=== PATIENT | female | born 1965 | race Caucasian/White ===

== ENCOUNTER 2021-12-31 15:24 | Emergency (ER) | payer SELFPAY ==
[2021-12-31 15:26] VITALS: BP 197/88; PULSE 87; RESP 20; TEMP 36.9; O2SAT 98
--- NOTE | 2021-12-31 15:45 | DI.RAD.S_ITS ---
PROCEDURE: XR CHEST 1V INDICATIONS: Chest pain TECHNIQUE: One view of the chest was acquired. COMPARISON: None. FINDINGS: Surgical changes and devices: None. Lungs and pleura: Lungs are clear. No pleural effusions or pneumothorax. Mediastinum: Mediastinal contours appear normal. Heart size is normal. Bones and chest wall: No suspicious bony lesions. Overlying soft tissues appear unremarkable. IMPRESSION: No acute cardiopulmonary process demonstrated radiographically. Dictated by: Pal Anna M.D. on 12/31/2021 at 16:08 Approved by: Pal Anna M.D. on 12/31/2021 at 16:10
[2021-12-31 16:21] LABS: Add Manual Diff / Slide Review NO; Basophils Absolute Auto 100 /uL (0-100); Basophils Percent Auto 0.7 % (0-2); Eosinophils Absolute Auto 100 /uL (0-450); Eosinophils Percent Auto 1.6 % (2-4); Hematocrit 37.1 % (36-46); Hemoglobin 12.5 g/dL (12.0-16.0); Lymphocytes Absolute Auto 3000 /uL (1100-4500); Lymphocytes Percent Auto 36.7 % (25-40); Mean Corpuscular HGB Conc 33.7 % (30-36); Mean Corpuscular Hemoglobin 28.5 PG (26-34); Mean Corpuscular Volume 84.8 fL (80-100); Monocytes Absolute Auto 400 /uL (0-900); Monocytes Percent Auto 4.7 % (3-14); Neutrophils Absolute Auto 4600 /uL (1500-7000); Neutrophils Percent Auto 56.3 % (50-75); Platelet Count 204 X10^3/uL (150-400); Red Blood Cell Count 4.37 X10^6/uL (4.0-5.2); Red Cell Distribution Width 14.9 % (11.6-14.8); White Blood Cell Count 8.3 X10^3/uL (4.5-11.0)
[2021-12-31 16:26] LABS: Alanine Aminotransferase 16 IU/L (<35); Albumin 4.3 g/dL (3.5-5.0); Albumin Globulin Ratio 1.4 (1.0-2.8); Alkaline Phosphatase 77 U/L (38-126); Aspartate Aminotransferase 22 IU/L (14-36); BUN Creatinine Ratio 16.8 (6-22); Bilirubin Total 0.4 mg/dL (0.2-1.3); Blood Urea Nitrogen 16 mg/dL (7-17); Calcium 8.6 mg/dL (8.4-10.2); Carbon Dioxide 25 mmol/L (22-32); Chloride 104 mmol/L (98-107); Creatine Kinase 52 U/L (30-135); Estimated Glomerular Filt Rate > 60 mL/min (>60); Globulin 3.1 g/dL (1.7-4.1); Glucose 128 mg/dL (70-100); HEMOLYSIS < 15 (0-50); Lipase 45 U/L (23-300); Magnesium 1.8 mg/dL (1.6-2.3); Sodium 139 mmol/L (137-145); Total Protein 7.4 g/dL (6.3-8.2)
[2021-12-31 16:37] LABS: Troponin I < 0.012 ng/mL (0.01-0.034)
--- NOTE | 2021-12-31 16:43 | ED_ITS ---
HPI - General Adult <Fernando Johnson PA-C - Last Filed: 12/31/21 18:20> General Chief complaint: Hypertension Stated complaint: HIGH BLOOD PRESSURE Time Seen by Provider: 12/31/21 16:34 Source: patient and family Mode of arrival: Wheelchair History of Present Illness HPI narrative: Patient is a 56-year-old female who presents to the ED reporting a 1 day history of elevated blood pressure. She has been having some abdominal discomfort and increased gas and bloating with some associated diarrhea for the past couple of days. She states that the abdominal pain seems to be an ongoing thing although it is new for her she does not have a history of any chronic changes of bowel problems. No inflammatory bowel disease or irritable bowel irritable bowel disease. She reports excessive amount of gas and belching that does offer her some relief of her symptoms. She noticed after the abdominal pain started that her blood pressure started to elevate that she has not been able to control her blood pressure as a since then with her metoprolol. She has been on metoprolol for 15 years which she takes 25 mg twice a day. No reported black tarry stools or any nausea or vomiting. Related Data Previous Rx's Medication Instructions Recorded omeprazole 40 mg capsule,delayed 40 mg PO QDAY #180 caps 04/09/16 release metoprolol tartrate 25 mg tablet 25 mg PO BID #180 tabs 08/24/18 gabapentin 300 mg capsule 600 mg PO TID #180 caps 09/02/18 hydrocodone 5 mg-acetaminophen 325 1 - 2 tab PO Q6HP PRN pain #120 09/02/18 mg tablet (Wilmot) tabs sertraline 50 mg tablet (Zoloft) 50 mg PO DAILY #30 tabs 09/02/18 Allergies Allergy/AdvReac Type Severity Reaction Status Date / Time latex [LATEX] Allergy Mild RASH Verified 09/02/18 14:00 Penicillins [PENICILLINS] Allergy Mild Verified 09/02/18 14:00 CLASS: X20 - Allergy Mild Uncoded 09/02/18 14:00 Review of Systems <Fernando Johnson PA-C - Last Filed: 12/31/21 18:20> Review of Systems ROS Unobtainable: All systems reviewed & are unremarkable except as noted in HPI and below Constitutional Constitutional: Denies chills, Denies fatigue, Denies fever(s), Denies frequent falls, Denies lethargy and Denies weakness Eyes Eyes: Denies change in vision, Denies eye discharge, Denies irritation and Denies loss of vision ENT Ears, Nose, Mouth, and Throat: Denies change in voice, Denies dizziness, Denies neck pain, Denies sore throat and Denies throat swelling Cardiovascular Cardiovascular: Denies chest pain, Reports chest pain with activity, Denies irre gular heart rhythm, Denies lightheadedness, Reports palpitations, Denies dyspnea, Denies dyspnea on exertion and Denies orthopnea Respiratory Respiratory: Denies cough, Denies dyspnea, Denies dyspnea on exertion and Denies wheezing Gastrointestinal Gastrointestinal: Reports abdominal pain, Reports change in bowel habits, Reports diarrhea, Denies nausea and Denies vomiting Genitourinary Genitourinary: Denies hematuria, Denies flank pain, Denies urinary incontinence and Denies urinary urgency Musculoskeletal Musculoskeletal: Denies back pain, Denies muscle weakness, Denies neck pain, Denies numbness and Denies tingling Integumentary/Breasts Skin/Breast: Denies pruritus, Denies erythema, Denies rash and Denies wounds Neurologic Neurologic: Denies behavioral changes, Denies confusion, Denies dizziness, Denies frequent falls, Denies loss of vision, Denies numbness, Denies tingling and Denies weakness Psychiatric Psychiatric: Denies anxiety, Denies behavioral changes, Denies confusion, Denies depression, Denies homicidal ideation and Denies suicidal ideation Endocrine Endocrine: Denies fatigue, Denies flushing and Reports palpitations Hematologic/Lymphatic Hematologic/Lymphatic: Denies easy bruising Allergic/Immunologic Allergic/Immunologic: Denies urticaria, Denies throat swelling and Denies wh eezing Patient History <Fernando Johnson PA-C - Last Filed: 12/31/21 18:20> Medical History (Updated 12/31/21 @ 18:20 by Fernando Johnson PA-C) Anxiety GERD (gastroesophageal reflux disease) Lumbar disc disease Family History Grandmother Cancer Social History marital status: Smoking Status: Current every day smoker alcohol intake: current (1-2 A DAY ) substance use type: does not use Smoking Status: Current every day smoker Exam <Fernando Johnson PA-C - Last Filed: 12/31/21 18:20> Initial Vital Signs Initial Vital Signs: Vital Signs Temperature 98.4 F 12/31/21 15:26 Pulse Rate 87 12/31/21 15:26 Respiratory Rate 20 12/31/21 15:26 Blood Pressure 197/88 H 12/31/21 15:26 Pulse Oximetry 98 12/31/21 15:26 Oxygen Delivery Method 12/31/21 15:26 Const General: cooperative, healthy appearing and comfortable Nutritional Appearance: average body habitus HENMT Head: normal to inspection and normocephalic Resp Effort & Inspection: normal respiratory effort and able to speak in complete sentences Auscultation: clear to auscultation bilaterally Cardio Palpation: normal PMI Rate: regular rate Rhythm: regular rhythm Heart Sounds: S1 normal and S2 normal GI Inspection: normal to inspection Palpation: soft and no hepatosplenomegaly Percussion: normal to percussion Auscultation: normal bowel sounds <Mora Paez MD - Last Filed: 12/31/21 18:25> Initial Vital Signs Initial Vital Signs: Vital Signs Temperature 98.4 F 12/31/21 15:26 Pulse Rate 87 12/31/21 15:26 Respiratory Rate 20 12/31/21 15:26 Blood Pressure 197/88 H 12/31/21 15:26 Pulse Oximetry 98 12/31/21 15:26 Oxygen Delivery Method 12/31/21 15:26 Course <Fernando Johnson PA-C - Last Filed: 12/31/21 18:20> Orders Ordered: ED Orders 12/31/21 15:45 XR chest 1V Stat COVID19 -Nasal RAPID/Pre-Proc Stat EKG-12 Lead Stat 12/31/21 15:48 Complete Blood Count AUTO DIFF Stat Comprehensive Metabolic Panel Stat Lipase Stat Magnesium Stat Troponin & CK Cardiac Panel Stat 12/31/21 16:43 CT abdomen pelvis wo con Stat Reevaluation(s) Reevaluation #1: Patient doing okay no complaints of abdominal discomfort or gas or bloating. Vital Signs Vital signs: Vital Signs - 8 hr 12/31/21 15:26 12/31/21 18:16 Temperature 98.4 F Pulse Rate 87 67 Respiratory Rate 20 16 Blood Pressure 197/88 H 156/73 H Pulse Oximetry 98 95 Oxygen Delivery Method Room Air Room Air <Mora Paez MD - Last Filed: 12/31/21 18:25> Orders Ordered: ED Orders 12/31/21 15:45 XR chest 1V Stat COVID19 -Nasal RAPID/Pre-Proc Stat EKG-12 Lead Stat 12/31/21 15:48 Complete Blood Count AUTO DIFF Stat Comprehensive Metabolic Panel Stat Lipase Stat Magnesium Stat Troponin & CK Cardiac Panel Stat 12/31/21 16:43 CT abdomen pelvis wo con Stat Vital Signs Vital signs: Vital Signs - 8 hr 12/31/21 15:26 12/31/21 18:16 Temperature 98.4 F Pulse Rate 87 67 Respiratory Rate 20 16 Blood Pressure 197/88 H 156/73 H Pulse Oximetry 98 95 Oxygen Delivery Method Room Air Room Air Medical Decision Making <Fernando Johnson PA-C - Last Filed: 12/31/21 18:20> Differential Diagnosis Differential Diagnosis: Hypertensive Lab Data Result diagrams: 12/31/21 15:48 12/31/21 15:48 Labs: Lab Results 12/31/21 12/31/21 Range/Units 15:48 15:48 WBC 8.3 (4.5-11.0) X10^3/uL RBC 4.37 (4.0-5.2) X10^6/uL Hgb 12.5 (12.0-16.0) g/dL Hct 37.1 (36-46) % MCV 84.8 (80-100) fL MCH 28.5 (26-34) PG MCHC 33.7 (30-36) % RDW 14.9 H (11.6-14.8) % Plt Count 204 (150-400) X10^3/uL Neut % (Auto) 56.3 (50-75) % Lymph % (Auto) 36.7 (25-40) % Gila % (Auto) 4.7 (3-14) % Eos % (Auto) 1.6 L (2-4) % Baso % (Auto) 0.7 (0-2) % Neut # (Auto) 4600 (7036-0196) /uL Lymph # (Auto) 3000 (5961-4810) /uL Gila # (Auto) 400 (0-900) /uL Eos # (Auto) 100 (0-450) /uL Baso # (Auto) 100 (0-100) /uL Sodium 139 (137-145) mmol/L Potassium 4.0 (3.4-5.1) mmol/L Chloride 104 (98-107) mmol/L Carbon Dioxide 25 (22-32) mmol/L BUN 16 (7-17) mg/dL Creatinine 0.95 (0.52-1.04) mg/dL Estimated GFR > 60 (>60) mL/min BUN/Creatinine Ratio 16.8 (6-22) Glucose 128 H (70-100) mg/dL Calcium 8.6 (8.4-10.2) mg/dL Magnesium 1.8 (1.6-2.3) mg/dL Total Bilirubin 0.4 (0.2-1.3) mg/dL AST 22 (14-36) IU/L ALT 16 (<35) IU/L Alkaline Phosphatase 77 (38-126) U/L Total Creatine Kinase 52 (30-135) U/L CK-MB (CK-2) TNP CK-MB (CK-2) Rel Index TNP Troponin I < 0.012 (0.01-0.034) ng/mL Total Protein 7.4 (6.3-8.2) g/dL Albumin 4.3 (3.5-5.0) g/dL Globulin 3.1 (1.7-4.1) g/dL Albumin/Globulin Ratio 1.4 (1.0-2.8) Lipase 45 (23-300) U/L ECG Data Attestation: I personally reviewed and interpreted this ECG as follows: Prior ECG tracings: not available for review Interpretation: Sinus rhythm no acute changes. [facility] Narrative Medical decision making narrative: Patient was evaluated today for elevated blood pressure. She has been taking her blood pressure at home and as result she increased her metoprolol that she takes 25 mg twice daily she took 50. She recently quit smoking and admits that she started vaping result. CT abdomen does not show any likely cause for her abdominal discomfort and bloating. Vital signs were stable patient will be discharged home follow-up with PCP. <Mora Paez MD - Last Filed: 12/31/21 18:25> Lab Data Labs: Lab Results 12/31/21 12/31/21 Range/Units 15:48 15:48 WBC 8.3 (4.5-11.0) X10^3/uL RBC 4.37 (4.0-5.2) X10^6/uL Hgb 12.5 (12.0-16.0) g/dL Hct 37.1 (36-46) % MCV 84.8 (80-100) fL MCH 28.5 (26-34) PG MCHC 33.7 (30-36) % RDW 14.9 H (11.6-14.8) % Plt Count 204 (150-400) X10^3/uL Neut % (Auto) 56.3 (50-75) % Lymph % (Auto) 36.7 (25-40) % Gila % (Auto) 4.7 (3-14) % Eos % (Auto) 1.6 L (2-4) % Baso % (Auto) 0.7 (0-2) % Neut # (Auto) 4600 (3339-8930) /uL Lymph # (Auto) 3000 (5196-4662) /uL Gila # (Auto) 400 (0-900) /uL Eos # (Auto) 100 (0-450) /uL Baso # (Auto) 100 (0-100) /uL Sodium 139 (137-145) mmol/L Potassium 4.0 (3.4-5.1) mmol/L Chloride 104 (98-107) mmol/L Carbon Dioxide 25 (22-32) mmol/L BUN 16 (7-17) mg/dL Creatinine 0.95 (0.52-1.04) mg/dL Estimated GFR > 60 (>60) mL/min BUN/Creatinine Ratio 16.8 (6-22) Glucose 128 H (70-100) mg/dL Calcium 8.6 (8.4-10.2) mg/dL Magnesium 1.8 (1.6-2.3) mg/dL Total Bilirubin 0.4 (0.2-1.3) mg/dL AST 22 (14-36) IU/L ALT 16 (<35) IU/L Alkaline Phosphatase 77 (38-126) U/L Total Creatine Kinase 52 (30-135) U/L CK-MB (CK-2) TNP CK-MB (CK-2) Rel Index TNP Troponin I < 0.012 (0.01-0.034) ng/mL Total Protein 7.4 (6.3-8.2) g/dL Albumin 4.3 (3.5-5.0) g/dL Globulin 3.1 (1.7-4.1) g/dL Albumin/Globulin Ratio 1.4 (1.0-2.8) Lipase 45 (23-300) U/L Discharge Plan Departure Patient Disposition: Home Clinical Impression: Abdominal pain, Hypertension Instructions: DI for High Blood Pressure, DI for Abdominal Pain-Adult Activity Restrictions/Additional Instructions: You were seen today for your abdominal complaints and your elevated blood pressure. Continue to monitor your blood pressure at home notify your primary care provider of the findings and arrange for follow-up appointment. If her symptoms worsen or you begin to have any other difficulties you can return to the ED for re-evaluation. Thank you for the opportunity via care for you today. Prescriptions: No Action omeprazole 40 MG capsule,delayed release(DR/EC) 40 mg PO QDAY Qty: 180 3RF metoprolol tartrate 25 mg tablet 25 mg PO BID Qty: 180 3RF gabapentin 300 mg capsule 600 mg PO TID Qty: 180 3RF hydrocodone-acetaminophen [Wilmot] 5-325 mg tablet 1 - 2 tab PO Q6HP PRN (Reason: pain) Qty: 120 0RF sertraline [Zoloft] 50 mg tablet 50 mg PO DAILY Qty: 30 3RF <Mora Paez MD - Last Filed: 12/31/21 18:25> Cosign ED Attending Cosfortino[place] Attestation: I was immediately available in the department for consultation throughout this patient's visit. I agree with documentation as above. Mora Paez MD
--- NOTE | 2021-12-31 16:43 | DI.CT.S_ITS ---
PROCEDURE: CT ABDOMEN PELVIS WO CON INDICATIONS: abd pain, gas TECHNIQUE: Axial sections were acquired from the lung bases to the pubic symphysis. Coronal and sagittal reformats were performed. For radiation dose reduction, the following was used: automated exposure control, adjustment of mA and/or kV according to patient size. COMPARISON: [facility], CR, XR CHEST 1V, 12/31/2021, 15:57. FINDINGS: Image quality: Excellent. Lung bases: Unremarkable. Heart: No significant findings. URINARY: Right Kidney: No stones or hydronephrosis. Right Ureter: No hydroureter. Left Kidney: No stones or hydronephrosis. Left Ureter: No hydroureter. Bladder: Normal wall thickness. No stones. ABDOMEN: Liver: Unremarkable. Gallbladder: Unremarkable. Biliary ducts: Unremarkable. Pancreas: Unremarkable. Spleen: Unremarkable. Incidental note is made of an accessory splenule along the hilum of the primary spleen. Adrenal Glands: Unremarkable. Stomach and Bowel: Stomach, small bowel loops, and colon are unremarkable. There is a normal appendix. Colonic diverticulosis is seen, without findings of active diverticulitis. Peritoneum: No abnormal intraperitoneal fluid. No free air. Ventral Wall: No hernia. Abdominal Nodes: No enlarged retroperitoneal or mesenteric lymph nodes. Vessels: Aorta and inferior vena cava are normal in size. PELVIS: Pelvic Organs: The uterus appears normal for age. No adnexal masses are seen. Pelvic Nodes: Unremarkable. Miscellaneous: No inguinal hernias are seen. Bones: Focal lower lumbar spine degenerative changes are seen. Milder degenerative changes are seen elsewhere. IMPRESSION: No imaging explanation is found for this patient's presenting symptoms. No dilated loops of small bowel are seen. Distal colonic diverticulosis is seen, without findings of active diverticulitis. Incidental note is made of: Accessory splenule Normal appendix Lumbar spine degenerative change Dictated by: Ronald Kelly M.D. on 12/31/2021 at 16:46 Approved by: Ronald Kelly M.D. on 12/31/2021 at 16:47
[2021-12-31 18:16] VITALS: BP 156/73; PULSE 67; RESP 16; O2SAT 95
== END 2021-12-31 18:30 | disposition home or self-care (01) ==
PROVIDERS: Emergency Medicine; Emergency Provider Physician Assistant
DX: R10.9 Unspecified abdominal pain (principal); I10 Essential (primary) hypertension; R19.7 Diarrhea, unspecified; R00.2 Palpitations
CPT/HCPCS: 71045; 74176; 80053; 82550; 83690; 83735; 84484; 85025; 93005; 99283; 99284

== ENCOUNTER 2022-01-08 13:42 | Emergency (ER) | payer SELFPAY ==
[2022-01-08 13:49] VITALS: BP 215/99; PULSE 89; RESP 18; TEMP 36.7; O2SAT 97; BMI 37.1
--- NOTE | 2022-01-08 15:20 | ED_ITS ---
HPI - Dental/Oral <JOAO Moffett - Last Filed: 01/08/22 15:39> General Chief complaint: Dental/Oral Stated complaint: HIGH BLOOD PRESSURE TOOTH ACHE LOWER Time Seen by Provider: 01/08/22 15:10 Source: patient Mode of arrival: Ambulatory History of Present Illness HPI Narrative: This is a 56-year-old female presents to the emergency department complaining of dental pain off and on for the last two weeks, states that she has a small blister on her gums, and significant DKA of to adjacent teeth which she needs to help pulled. Patient states that she thinks that they are infected, and causing her high blood pressure. She states that her blood pressure was high today although she is taking her regularly scheduled medications. She denies having a primary care provider, states that she is awaiting insurance to have her teeth pulled. Related Data Previous Rx's Medication Instructions Recorded omeprazole 40 mg capsule,delayed 40 mg PO QDAY #180 caps 04/09/16 release metoprolol tartrate 25 mg tablet 25 mg PO BID #180 tabs 08/24/18 gabapentin 300 mg capsule 600 mg PO TID #180 caps 09/02/18 hydrocodone 5 mg-acetaminophen 325 1 - 2 tab PO Q6HP PRN pain #120 09/02/18 mg tablet ([place]) tabs sertraline 50 mg tablet (Zoloft) 50 mg PO DAILY #30 tabs 09/02/18 chlorhexidine gluconate 0.12 % 15 ml buccal DAILY #118 mL 01/08/22 mouthwash clindamycin HCl 150 mg capsule 150 mg PO TID 7 days #21 caps 01/08/22 clindamycin HCl 300 mg capsule 300 mg PO TID 7 days #21 caps 01/08/22 tramadol 50 mg tablet 50 mg PO BID PRN pain #14 tabs 01/08/22 Allergies Allergy/AdvReac Type Severity Reaction Status Date / Time latex [LATEX] Allergy Mild RASH Verified 09/02/18 14:00 Penicillins [PENICILLINS] Allergy Mild Verified 09/02/18 14:00 CLASS: X20 - Allergy Mild Uncoded 09/02/18 14:00 Review of Systems <JOAO Moffett - Last Filed: 01/08/22 15:39> Review of Systems Narrative: General: denies fever, chills, malaise, sweats, fatigue Head/Neck: denies headache, neck pain, dizziness Mouth: Endorses left lower tooth pain with DKA teeth and poor dentition Eyes: denies visual changes, eye pain Cardio: denies chest pain, palpitations, edema Respiratory: denies dyspnea, cough, orthopnea GI: denies abdominal pain, nausea, vomiting, or diarrhea : denies dysuria, hematuria, urinary retention, frequency or incontinence MSK: denies joint pain, muscle weakness Skin: denies rash, itching, skin lesions or other Neuro: denies numbness, tingling Patient History <JOAO Moffett - Last Filed: 01/08/22 15:39> Medical History Anxiety GERD (gastroesophageal reflux disease) Lumbar disc disease Family History Grandmother Cancer Social History marital status: Smoking Status: Current every day smoker alcohol intake: current (1-2 A DAY ) substance use type: does not use Smoking Status: Current every day smoker tobacco type: vaping Substance Use Type: does not use Exam <JOAO Moffett - Last Filed: 01/08/22 15:39> Narrative Exam Narrative: Independently reviewed vitals signs and nursing notes. General: cooperative, comfortable, in no acute distress, well groomed Head: atraumatic, symmetrical facial expressions Neck: supple Eyes: equal round and reactive, EOMI, conjunctiva normal Nose: nares patent, no rhinorrhea Mouth/Throat: moist mucus membranes, left lower jaw with two decayed molars without any other molars on the lower left side, small pinpoint lump or blister on the gingiva below the tooth, appears to have clear fluid inside. No other source, no surrounding erythema, edema, uvula is midline, no anterior cervical lymphadenopathy, no tenderness underneath her tongue, or the anterior cervical space. Cardiovascular: regular rate and rhythm, no peripheral edema, warm extremities Respiratory: normal effort, able to speak in complete sentences, no audible wheezing, stridor, or rales. No retractions or tachypnea. GI: abdomen soft, nontender to palpation, nondistended, no masses, no exquisite tenderness with exam, without guarding or rebound. MSK: moves all extremities, neurovascularly intact, no weakness, normal tone Skin: brisk capillary refill, no rash, no erythema Neuro: normal speech and cognition, A&O x3 Psych: mental status is grossly normal, congruent mood, normal affect, pleasant and cooperative Initial Vital Signs Initial Vital Signs: Vital Signs Temperature 98.1 F 01/08/22 13:49 Pulse Rate 89 01/08/22 13:49 Respiratory Rate 18 01/08/22 13:49 Blood Pressure 215/99 H 01/08/22 13:49 Pulse Oximetry 97 01/08/22 13:49 Oxygen Delivery Method 01/08/22 13:49 <Kelsea Brandon DO - Last Filed: 01/09/22 07:30> Initial Vital Signs Initial Vital Signs: Vital Signs Temperature 98.1 F 01/08/22 13:49 Pulse Rate 89 01/08/22 13:49 Respiratory Rate 18 01/08/22 13:49 Blood Pressure 215/99 H 01/08/22 13:49 Pulse Oximetry 97 01/08/22 13:49 Oxygen Delivery Method 01/08/22 13:49 Course <JOAO Moffett - Last Filed: 01/08/22 15:39> Orders Ordered: Discontinued Medications Clindamycin HCl (Clindamycin 150 Mg Capsule) 300 mg PO NOW ONE Stop: 01/08/22 15:19 Last Admin: 01/08/22 15:32 Dose: 300 mg Documented By: OMAR Clindamycin HCl (Clindamycin 150 Mg Capsule) 300 mg PO NOW ONE Stop: 01/08/22 15:19 Last Admin: 01/08/22 15:33 Dose: Not Given Documented By: OMAR Clindamycin HCl (Clindamycin 150 Mg Capsule) 150 mg PO NOW ONE Stop: 01/08/22 15:30 Last Admin: 01/08/22 15:32 Dose: 150 mg Documented By: OMAR Tramadol HCl (Tramadol 50 Mg Tablet) 50 mg PO NOW ONE Stop: 01/08/22 15:19 Last Admin: 01/08/22 15:32 Dose: 50 mg Documented By: OMAR Vital Signs Vital signs: Vital Signs - 8 hr 01/08/22 13:49 Temperature 98.1 F Pulse Rate 89 Respiratory Rate 18 Blood Pressure 215/99 H Pulse Oximetry 97 Oxygen Delivery Method Room Air <Kelsea Brandon DO - Last Filed: 01/09/22 07:30> Orders Ordered: Discontinued Medications Clindamycin HCl (Clindamycin 150 Mg Capsule) 300 mg PO NOW ONE Stop: 01/08/22 15:19 Last Admin: 01/08/22 15:32 Dose: 300 mg Documented By: MOAR Clindamycin HCl (Clindamycin 150 Mg Capsule) 300 mg PO NOW ONE Stop: 01/08/22 15:19 Last Admin: 01/08/22 15:33 Dose: Not Given Documented By: OMAR Clindamycin HCl (Clindamycin 150 Mg Capsule) 150 mg PO NOW ONE Stop: 01/08/22 15:30 Last Admin: 01/08/22 15:32 Dose: 150 mg Documented By: OMAR Tramadol HCl (Tramadol 50 Mg Tablet) 50 mg PO NOW ONE Stop: 01/08/22 15:19 Last Admin: 01/08/22 15:32 Dose: 50 mg Documented By: OMAR Vital Signs Vital signs: Vital Signs - 8 hr 01/08/22 13:49 Temperature 98.1 F Pulse Rate 89 Respiratory Rate 18 Blood Pressure 215/99 H Pulse Oximetry 97 Oxygen Delivery Method Room Air MDM - Dental/Oral <JOAO Moffett - Last Filed: 01/08/22 15:39> MDM Narrative Medical decision making narrative: This is a 56-year-old female presents to the emergency department stating that she has lower left dental decay with worsening pain over the last three days, states that she needs to have these teeth pulled because there is no tooth left. She states that there is a small blister in front of the tooth that has been there for approximately one month, and it is constantly hurting. She states that it has gotten worse over the last few days and her blood pressure was elevated this morning. She takes 25 mg of metoprolol b.i.d. and has been on that dose for many years but states that today her blood pressure was elevated much higher than usual. In triage, her BP was elevated at two with a heart rate of 89. She denies any chest pain, headache, mental status changes, bleeding, fevers, or any systemic symptoms which are abnormal. She does not have a primary care provider she is encouraged to establish one and given the phone number for [facility]. On exam it appears that she has significant decay of her lower left teeth, she was given contact information for [facility] dental clinics and encouraged to have this extracted. She states that she is allergic to penicillin with a rash and we discussed this is likely experienced nerve pain but she feels that this is infectious and states that it is getting worse. She denies any recent fever, chills, fatigue or weakness, there is no surrounding edema or erythema, she does have significant decay of her teeth with a small blister-like a said it does not appear to be an abscess and has clear fluid inside. Does not appear to be herpetic and patient reports it has been there for one month so it could be chronic. She was prescribed clindamycin, discussed that this was a strong antibiotic to make diarrhea, it comes with a risk of C difficile as well, discussed this and she wishes to have it anyway. She was given tramadol for pain states she has had this before without any issues. She understands to follow-up at [facility], pick her medications up at [facility] [facility], establish care with a primary care provider about her blood pressure and to return to the emergency department for any new or worsening symptoms. Patient is appropriate and amenable to discharge home. Vital signs are stable on repeat examination is unremarkable. Patient has been informed of results. Patient has been given strict return to ER precautions for any new or worsening symptoms. Patient understands to follow up closely with outpatient providers as instructed. Patient understands plan and agrees to discharge home. All questions and concerns answered at this time. Discharge Plan Departure Patient Disposition: Home Clinical Impression: Dental abscess Instructions: Tooth Decay, DI for Dental Pain Activity Restrictions/Additional Instructions: *You have been diagnosed with dental decay with possible dental abscess. Please take 450 mg of clindamycin 3 times a day for the next seven days. You will need to take a 300 mg capsule and a 150 mg capsule together for that dose. Please use the chlorhexidine mouthwash one or 2 times daily to help prevent gum infection or worsening of it. Please use the tramadol once every 12 hours as needed for pain, please call the number below to establish care with one of the primary care providers at [facility]. Please look up the [facility] [place] [facility] low-[place] and provide dental care. If you develop a fever, chills, inability to swallow or worsening infection, please return to the emergency department for evaluation. I wish you the best. *What to do: *Please continue to take your regular medications as directed. [ x] New medication prescriptions sent to your pharmacy: [ [facility]] [ ] New medication written as a paper prescription [ ] No new medications given *Please follow up with your primary care provider in 2-3 days, call for an appointment. Let them know you were seen in the Emergency Department and that we asked that you be seen for follow-up. We will electronically transmit a record of today's note if your PCP is in our system *If you do not have a primary care provider please contact [phone] to establish care with one of [facility] primary care providers. *Return to Emergency Department if you should have any new, worsening or concerning symptoms, such as [fever greater than 101F, chills, worsening pain, persistent vomiting or other bothersome symptoms] Prescriptions: New clindamycin HCl 300 mg capsule 300 mg PO TID 7 Days Qty: 21 0RF clindamycin HCl 150 mg capsule 150 mg PO TID 7 Days Qty: 21 0RF tramadol 50 mg tablet 50 mg PO BID PRN (Reason: pain) Qty: 14 0RF chlorhexidine gluconate 0.12 % mouthwash 15 ml buccal DAILY Qty: 118 0RF Rx Instructions: Swish and spit 1-2 times daily for at least one week No Action omeprazole 40 MG capsule,delayed release(DR/EC) 40 mg PO QDAY Qty: 180 3RF metoprolol tartrate 25 mg tablet 25 mg PO BID Qty: 180 3RF gabapentin 300 mg capsule 600 mg PO TID Qty: 180 3RF hydrocodone-acetaminophen [[place]] 5-325 mg tablet 1 - 2 tab PO Q6HP PRN (Reason: pain) Qty: 120 0RF sertraline [Zoloft] 50 mg tablet 50 mg PO DAILY Qty: 30 3RF Visit Report Forms: Patient Portal/API <Kelsea Brandon DO - Last Filed: 01/09/22 07:30> Cosign ED Attending Tayoature Attestation: I was immediately available in the department for consultation. Documentation has been reviewed. I agree with assessment and plan.
[2022-01-08] MEDS: CLINDAMYCIN 150 MG CAPSULE 300 MG PO (15:32)
[2022-01-08] MEDS: CLINDAMYCIN 150 MG CAPSULE PO (15:32)
[2022-01-08] MEDS: TRAMADOL 50 MG TABLET PO (15:32)
[2022-01-08 15:39] VITALS: BP 175/89; PULSE 74; RESP 18; O2SAT 98
== END 2022-01-08 15:40 | disposition home or self-care (01) ==
PROVIDERS: Emergency Provider Nurse Practitioner Critical Care Medicine
DX: K04.7 Periapical abscess without sinus (principal)
CPT/HCPCS: 99283

== ENCOUNTER 2023-09-11 19:53 | Emergency (ER) | payer SELFPAY ==
[2023-09-11] VITALS (13 sets, daily range): BP systolic 137–193; BP diastolic 62–137; PULSE 71–88; RESP 13–24; TEMP 36.9; O2SAT 93–97; BMI 40.3
--- NOTE | 2023-09-11 21:29 | DI.RAD.S_ITS ---
PROCEDURE: XR CHEST 1V INDICATIONS: chest pain TECHNIQUE: One view of the chest was acquired. COMPARISON: [facility], , XR CHEST 1V, 12/31/2021, 15:57. [facility], , CHEST 1 VIEW, 11/17/2007, 3:40. FINDINGS: Surgical changes and devices: None. Lungs and pleura: Lungs are clear. No pleural effusions or pneumothorax. Mediastinum: Mediastinal contours appear normal. Heart size is normal. Bones and chest wall: No suspicious bony lesions. Overlying soft tissues appear unremarkable. IMPRESSION: No acute cardiopulmonary abnormality is seen. Dictated by: Fabrice Garcia M.D. on 09/11/2023 at 21:48 Approved by: Fabrice Garcia M.D. on 09/11/2023 at 21:48
[2023-09-11 21:39] LABS: Prothrombin Time 11.8 SECONDS (9.4-12.5)
[2023-09-11] MEDS: ASPIRIN 81 MG CHEW TAB 324 MG PO (21:40)
[2023-09-11 21:42] LABS: PTT Partial Thromboplastin Tim 35 SECONDS (25.1-36.5)
[2023-09-11 21:45] LABS: Add Manual Diff / Slide Review NO; Basophils Absolute Auto 0 /uL (0-100); Basophils Percent Auto 0.5 % (0-2); Eosinophils Absolute Auto 100 /uL (0-450); Eosinophils Percent Auto 0.8 % (2-4); Hemoglobin 11.8 g/dL (12.0-16.0); Lymphocytes Absolute Auto 1700 /uL (1100-4500); Lymphocytes Percent Auto 20.6 % (25-40); Mean Corpuscular HGB Conc 31.9 % (30-36); Mean Corpuscular Hemoglobin 24.8 PG (26-34); Mean Corpuscular Volume 77.7 fL (80-100); Monocytes Absolute Auto 300 /uL (0-900); Monocytes Percent Auto 3.5 % (3-14); Neutrophils Absolute Auto 6000 /uL (1500-7000); Neutrophils Percent Auto 74.6 % (50-75); Platelet Count 249 X10^3/uL (150-400); Red Blood Cell Count 4.76 X10^6/uL (4.0-5.2); Red Cell Distribution Width 15.3 % (11.6-14.8); White Blood Cell Count 8.1 X10^3/uL (4.5-11.0)
[2023-09-11 21:52] LABS: Alanine Aminotransferase 21 IU/L (<35); Albumin 4.3 g/dL (3.5-5.0); Albumin Globulin Ratio 1.2 (1.0-2.8); Alkaline Phosphatase 113 U/L (38-126); Aspartate Aminotransferase 24 IU/L (14-36); BUN Creatinine Ratio 11.6 (6-22); Bilirubin Total 0.5 mg/dL (0.2-1.3); Blood Urea Nitrogen 10 mg/dL (7-17); Calcium 9.6 mg/dL (8.4-10.2); Carbon Dioxide 25 mmol/L (22-32); Chloride 107 mmol/L (98-107); Creatine Kinase 63 U/L (30-135); Estimated Glomerular Filt Rate > 60 mL/min (>60); Globulin 3.7 g/dL (1.7-4.1); Glucose 119 mg/dL (70-100); HEMOLYSIS < 15 (0-50); Lipase 57 U/L (23-300); Magnesium 1.9 mg/dL (1.6-2.3); Potassium 4.2 mmol/L (3.4-5.1); Sodium 138 mmol/L (137-145)
[2023-09-11 22:04] LABS: Troponin I < 0.012 ng/mL (0.01-0.034)
--- NOTE | 2023-09-11 22:53 | ED.NAVMDI ---
HPI - Nausea/Vomiting/Diarrhea General Chief complaint: Nausea/Vomiting/Diarrhea Stated complaint: chest pain/HBP Time Seen by Provider: 09/11/23 22:53 Source: patient and family Mode of arrival: Wheelchair History of Present Illness HPI Narrative: 58-year-old female with history of hypertension, tobacco use who presents with complaint of generalized abdominal pain, but localized to left lower quadrant at times, diarrhea several times without any black or blood. Shaking but no fevers. She states she felt some discomfort up into her chest as well no nausea or vomiting. No cold cough congestion symptoms she felt short of breath earlier. Patient did state that she took some tea because she had not had a bowel movement several days in her diarrhea started after this. Allergies include latex and penicillin. Does use tobacco daily, no alcohol or recreational drugs. Related Data Previous Rx's Medication Instructions Recorded omeprazole 40 mg capsule,delayed 40 mg PO QDAY #180 caps 04/09/16 release metoprolol tartrate 25 mg tablet 25 mg PO BID #180 tabs 08/24/18 gabapentin 300 mg capsule 600 mg (2 x 300 mg) PO TID #180 09/02/18 caps hydrocodone 5 mg-acetaminophen 325 1 - 2 tab PO Q6HP PRN pain #120 09/02/18 mg tablet ([place]) tabs sertraline 50 mg tablet (Zoloft) 50 mg PO DAILY #30 tabs 09/02/18 chlorhexidine gluconate 0.12 % 15 ml buccal DAILY #118 mL 01/08/22 mouthwash tramadol 50 mg tablet 50 mg PO BID PRN pain #14 tabs 01/08/22 Allergies Allergy/AdvReac Type Severity Reaction Status Date / Time latex [LATEX] Allergy Mild RASH Verified 09/02/18 14:00 Penicillins [PENICILLINS] Allergy Mild Verified 09/02/18 14:00 CLASS: X20 - Allergy Mild Uncoded 09/02/18 14:00 Review of Systems Review of Systems ROS Unobtainable: All systems reviewed & are unremarkable except as noted in HPI and below Patient History Medical History (Updated 09/12/23 @ 00:56 by Vale Khoury DO) Anxiety Lumbar disc disease GERD (gastroesophageal reflux disease) Family History Grandmother Cancer Social History marital status: Smoking Status: Current every day smoker alcohol intake: current (1-2 A DAY ) substance use type: does not use Smoking Status: Current every day smoker tobacco type: vaping Substance Use Type: does not use Exam Narrative Exam Narrative: GENERAL: Alert and oriented x three, mild distress. HEENT: Head normocephalic, atraumatic, EOMI, pupils reactive, face symmetric, moist mucous membranes NECK: Supple, full range of motion CARDIOVASCULAR: Regular rate and rhythm without murmurs, rubs or gallops. No edema. No JVD. RESPIRATORY: Breath sounds equal bilaterally, no wheezes rales or rhonchi. ABDOMEN: Soft, left lower quadrant tenderness. Normoactive bowel sounds all 4 quadrants. No guarding or rebound, rigidity, no mass : No CVA tenderness EXTREMITIES: Normal range of motion, no clubbing or edema. Neurovascularly intact NEUROLOGICAL: Cranial nerves II through XII grossly intact. Moving all extremities SKIN: Warm, dry, no petechiae, no rashes or lesions. Initial Vital Signs Initial Vital Signs: Vital Signs Temperature 98.5 F 09/11/23 20:13 Pulse Rate 79 09/11/23 20:13 Respiratory Rate 18 09/11/23 20:13 Blood Pressure 193/97 H 09/11/23 20:13 Pulse Oximetry 96 09/11/23 20:13 Oxygen Delivery Method Room Air 09/11/23 20:13 Course Orders Ordered: ED Orders 09/11/23 21:23 Complete Blood Count AUTO DIFF Stat Comprehensive Metabolic Panel Stat Lipase Stat Magnesium Stat PTT Partial Thromboplastin Delgado Stat Prothrombin Time INR Stat Troponin & CK Cardiac Panel Stat 09/11/23 21:29 XR chest 1V Stat EKG-12 Lead Stat 09/11/23 23:35 CT abdomen pelvis w con Stat Trop I [Troponin I] Stat 09/12/23 EKG-12 Lead Routine Discontinued Medications Aspirin (Aspirin 81 Mg Chew Tab) 324 mg PO NOW ONE Stop: 09/11/23 21:30 Last Admin: 09/11/23 21:40 Dose: 324 mg Documented By: AB Vital Signs Vital signs: Vital Signs - 8 hr 09/11/23 21:18 09/11/23 21:19 09/11/23 21:19 Temperature Pulse Rate 86 82 Respiratory Rate Blood Pressure 182/88 H Pulse Oximetry 94 93 09/11/23 21:30 09/11/23 21:31 09/11/23 21:31 Temperature Pulse Rate 86 88 Respiratory Rate 21 24 Blood Pressure 177/137 H Pulse Oximetry 97 96 09/11/23 22:00 09/11/23 22:01 09/11/23 22:01 Temperature Pulse Rate 76 75 Respiratory Rate 17 21 Blood Pressure 158/72 H Pulse Oximetry 94 96 09/11/23 22:30 09/11/23 22:30 09/11/23 22:52 Temperature Pulse Rate 76 Respiratory Rate 19 Blood Pressure 151/69 H 158/72 H Pulse Oximetry 95 09/11/23 22:52 09/11/23 23:00 09/11/23 23:01 Temperature Pulse Rate 71 75 Respiratory Rate 15 13 Blood Pressure 173/82 H Pulse Oximetry 96 96 09/11/23 23:01 09/11/23 23:30 09/11/23 23:31 Temperature Pulse Rate 73 79 80 Respiratory Rate 14 14 19 Blood Pressure Pulse Oximetry 95 96 96 09/11/23 23:31 09/12/23 00:00 09/12/23 00:01 Temperature Pulse Rate 86 Respiratory Rate 29 H Blood Pressure 137/62 166/86 H Pulse Oximetry 97 09/12/23 00:01 09/12/23 00:30 09/12/23 01:00 Temperature Pulse Rate 85 95 H 95 H Respiratory Rate 24 27 H 18 Blood Pressure Pulse Oximetry 97 93 97 09/12/23 01:02 09/12/23 01:02 09/12/23 01:03 Temperature 98.5 F Pulse Rate 94 H 94 H Respiratory Rate 20 23 Blood Pressure 158/89 H 158/89 H Pulse Oximetry 96 96 MDM - Nausea/Vomiting/Diarrhea Lab Data 09/11/23 21:23 09/11/23 21:23 Labs: Lab Results 09/11/23 09/12/23 Range/Units 21:23 00:02 WBC 8.1 (4.5-11.0) X10^3/uL RBC 4.76 (4.0-5.2) X10^6/uL Hgb 11.8 L (12.0-16.0) g/dL Hct 37.0 (36-46) % MCV 77.7 L (80-100) fL MCH 24.8 L (26-34) PG MCHC 31.9 (30-36) % RDW 15.3 H (11.6-14.8) % Plt Count 249 (150-400) X10^3/uL Neut % (Auto) 74.6 (50-75) % Lymph % (Auto) 20.6 L (25-40) % [place] % (Auto) 3.5 (3-14) % Eos % (Auto) 0.8 L (2-4) % Baso % (Auto) 0.5 (0-2) % Neut # (Auto) 6000 (9192-4937) /uL Lymph # (Auto) 1700 (2152-1250) /uL [place] # (Auto) 300 (0-900) /uL Eos # (Auto) 100 (0-450) /uL Baso # (Auto) 0 (0-100) /uL PT 11.8 (9.4-12.5) SECONDS INR 1.0 (0.9-1.3) APTT 35 (25.1-36.5) SECONDS Sodium 138 (137-145) mmol/L Potassium 4.2 (3.4-5.1) mmol/L Chloride 107 (98-107) mmol/L Carbon Dioxide 25 (22-32) mmol/L BUN 10 (7-17) mg/dL Creatinine 0.86 (0.52-1.04) mg/dL Estimated GFR > 60 (>60) mL/min BUN/Creatinine Ratio 11.6 (6-22) Glucose 119 H (70-100) mg/dL Calcium 9.6 (8.4-10.2) mg/dL Magnesium 1.9 (1.6-2.3) mg/dL Total Bilirubin 0.5 (0.2-1.3) mg/dL AST 24 (14-36) IU/L ALT 21 (<35) IU/L Alkaline Phosphatase 113 (38-126) U/L Total Creatine Kinase 63 (30-135) U/L Troponin I < 0.012 < 0.012 (0.01-0.034) ng/mL Total Protein 8.0 (6.3-8.2) g/dL Albumin 4.3 (3.5-5.0) g/dL Globulin 3.7 (1.7-4.1) g/dL Albumin/Globulin Ratio 1.2 (1.0-2.8) Lipase 57 (23-300) U/L Urine Dip Bedside Urine Glucose Negative Bedside Urine Bilirubin - Negative Bedside Urine Ketone - Negative Urine Specific Park 1.015 Bedside Urine Occult Blood +/- Bedside Urine pH 6.5 Bedside Urine Protein - Negative Bedside Urine Nitrite - Negative Bedside Urine Leukocytes - Negative Esterase Imaging Data CT scan - abdomen/pelvis: Radiologist's Impression: [address] [address] [address] Scan Report Signed Patient: Maritza Murphy MR#: [id number] : 1965 Acct:[id number] Age/Sex: 56 / F Date of Service: 12/31/21 Loc: ED Accession Number: [id number] Procedure: CT abdomen pelvis wo con Ordering Provider: Fernando Johnson P.A-C PROCEDURE: CT ABDOMEN PELVIS WO CON INDICATIONS: abd pain, gas TECHNIQUE: Axial sections were acquired from the lung bases to the pubic symphysis. Coronal and sagittal reformats were performed. For radiation dose reduction, the following was used: automated exposure control, adjustment of mA and/or kV according to patient size. COMPARISON: [facility], CR, XR CHEST 1V, 12/31/2021, 15:57. FINDINGS: Image quality: Excellent. Lung bases: Unremarkable. Heart: No significant findings. URINARY: Right Kidney: No stones or hydronephrosis. Right Ureter: No hydroureter. Left Kidney: No stones or hydronephrosis. Left Ureter: No hydroureter. Bladder: Normal wall thickness. No stones. ABDOMEN: Liver: Unremarkable. Gallbladder: Unremarkable. Biliary ducts: Unremarkable. Pancreas: Unremarkable. Spleen: Unremarkable. Incidental note is made of an accessory splenule along the hilum of the primary spleen. Adrenal Glands: Unremarkable. Stomach and Bowel: Stomach, small bowel loops, and colon are unremarkable. There is a normal appendix. Colonic diverticulosis is seen, without findings of active diverticulitis. Peritoneum: No abnormal intraperitoneal fluid. No free air. Ventral Wall: No hernia. Abdominal Nodes: No enlarged retroperitoneal or mesenteric lymph nodes. Vessels: Aorta and inferior vena cava are normal in size. PELVIS: Pelvic Organs: The uterus appears normal for age. No adnexal masses are seen. Pelvic Nodes: Unremarkable. Miscellaneous: No inguinal hernias are seen. Bones: Focal lower lumbar spine degenerative changes are seen. Milder degenerative changes are seen elsewhere. IMPRESSION: No imaging explanation is found for this patient's presenting symptoms. No dilated loops of small bowel are seen. Distal colonic diverticulosis is seen, without findings of active diverticulitis. Incidental note is made of: Accessory splenule Normal appendix Lumbar spine degenerative change Dictated by: Ronald Kelly M.D. on 12/31/2021 at 16:46 Approved by: Ronald Kelly M.D. on 12/31/2021 at 16:47 Chest x-ray: Radiologist's Impression: Close Chest X-Ray (Signed) Fabrice Garcia - 09/11/23 Abdomen/Pelvis CT (Signed) Ronald Kelly - 12/31/21 Chest X-Ray (Signed) Pal Anna - 12/31/21 Launch?[place] [address] XRay Report Signed Patient: Maritza Murphy MR#: [id number] : 1965 Acct:[id number] Age/Sex: 58 / F Date of Service: 09/11/23 Loc: ED Accession Number: [id number] Procedure: XR chest 1V Ordering Provider: Vale Khoury D.O. PROCEDURE: XR CHEST 1V INDICATIONS: chest pain TECHNIQUE: One view of the chest was acquired. COMPARISON: [facility], XR CHEST 1V, 12/31/2021, 15:57. [facility], CHEST 1 VIEW, 11/17/2007, 3:40. FINDINGS: Surgical changes and devices: None. Lungs and pleura: Lungs are clear. No pleural effusions or pneumothorax. Mediastinum: Mediastinal contours appear normal. Heart size is normal. Bones and chest wall: No suspicious bony lesions. Overlying soft tissues appear unremarkable. IMPRESSION: No acute cardiopulmonary abnormality is seen. Dictated by: Fabrice Garcia M.D. on 09/11/2023 at 21:48 Approved by: Fabrice Garcia M.D. on 09/11/2023 at 21:48 ECG Data Attestation: I personally reviewed and interpreted this ECG as follows: Prior ECG tracings: available for review Interpretation: Sinus rhythm, right axis deviation, depression lateral leads no elevation or reciprocal changes noted. Patient has prior from 12/31/2021 does not depression but does show flattened T-waves at same area. EKG 2. Shows appears to be sinus rhythm rate of 78 W[place] 204 QRS 82 QTC 471. Some depression flattened T-waves throughout in lateral leads. Nonspecific T-wave change. MDM Narrative Medical decision making narrative: 58-year-old female complaint of abdominal pain diarrhea particularly left lower quadrant but also had some chest pain afterwards. She had taken medication to help her poop and then had quite a bit of diarrhea. She is tender in the left lower quadrant. Labs show normal CBC, normal CMP, glucose of 150- INR Mag 1.9 LFTs are negative, troponin is negative. Chest x-ray is negative EKG shows nonspecific change. Repeat troponin is negative. CT abdomen pelvis patient is having diarrhea left lower quadrant tenderness and chills. No acute changes noted. Diverticulosis without diverticulitis. Urine is negative. Patient feels improved. Had what additional dose of diarrhea in the department but no more after that. Slightly hypertensive but overall vitals appropriate. They should felt appropriate for discharge home return precautions. Discharge Plan Departure Patient Disposition: Home Clinical Impression: Diarrhea Activity Restrictions/Additional Instructions: Please follow up with your physician for recheck. I hope you continue to feel improved. Please return for fevers, new or worsening chest, abdominal back or flank pain, persistent vomiting, black or bloody stools, lightheadedness or passing out or other new or concerning changes. Prescriptions: No Action omeprazole 40 MG capsule,delayed release(DR/EC) 40 mg PO QDAY Qty: 180 3RF metoprolol tartrate 25 mg tablet 25 mg PO BID Qty: 180 3RF gabapentin 300 mg capsule 600 mg PO TID Qty: 180 3RF hydrocodone-acetaminophen [[place]] 5-325 mg tablet 1 - 2 tab PO Q6HP PRN (Reason: pain) Qty: 120 0RF sertraline [Zoloft] 50 mg tablet 50 mg PO DAILY Qty: 30 3RF tramadol 50 mg tablet 50 mg PO BID PRN (Reason: pain) Qty: 14 0RF chlorhexidine gluconate 0.12 % mouthwash 15 ml buccal DAILY Qty: 118 0RF Rx Instructions: Swish and spit 1-2 times daily for at least one week Stand Alone Forms: Patient Portal/API
--- NOTE | 2023-09-11 23:35 | DI.CT.S_ITS ---
PROCEDURE: CT ABDOMEN PELVIS W CON INDICATIONS: LLQ abd pain, diarrhea TECHNIQUE: After the administration of intravenous contrast, axial sections acquired from the lung bases to the pubic symphysis. Coronal and sagittal reformats were performed. For radiation dose reduction, the following was used: automated exposure control, adjustment of mA and/or kV according to patient size. COMPARISON: [facility], CT, CT ABDOMEN PELVIS WO CON, 12/31/2021, 17:13. FINDINGS: Image quality: Diagnostic. Lower Chest: No significant findings. ABDOMEN: Liver: No solid mass. Gallbladder: No radiopaque gallstones or wall thickening. Biliary ducts: No biliary dilation. Pancreas: No ductal dilation. Spleen: Size is within normal limits. Splenule is noted. Adrenal Glands: No adrenal nodules. Kidneys and Ureters: No hydronephrosis. No solid mass. No complex renal cystic lesion which requires follow up. Stomach and Bowel: Normal colonic caliber, without significant wall thickening. Diverticulosis without evidence of acute diverticulitis. Normal appendix. Peritoneum: No abnormal intraperitoneal fluid. No free air. Ventral Wall: No significant ventral hernia. Abdominal Nodes: No retroperitoneal or mesenteric adenopathy by size criteria. Vessels: Aorta and inferior vena cava are normal in size. PELVIS: Pelvic Organs: Unremarkable. Bladder: No bladder wall thickening, accounting for underdistention. Pelvic Nodes: No enlarged lymph nodes. Miscellaneous: No inguinal hernias are seen. Bones: No aggressive osseous abnormality. Degenerative changes of the spine. IMPRESSION: 1. No acute findings within the abdomen or pelvis to explain patient's symptoms. 2. Diverticulosis without evidence of acute diverticulitis. Dictated by: Fabrice Garcia M.D. on 09/12/2023 at 0:40 Approved by: Fabrice Garcia M.D. on 09/12/2023 at 0:44
[2023-09-12] VITALS: PULSE 86; RESP 29; O2SAT 97
[2023-09-12 00:01] VITALS: BP 166/86; PULSE 85; RESP 24; O2SAT 97
[2023-09-12 00:30] VITALS: PULSE 95; RESP 27; O2SAT 93
[2023-09-12 00:42] LABS: Troponin I < 0.012 ng/mL (0.01-0.034)
[2023-09-12 01:00] VITALS: PULSE 95; RESP 18; O2SAT 97
[2023-09-12 01:02] VITALS: BP 158/89; PULSE 94; RESP 20; O2SAT 96
[2023-09-12 01:03] VITALS: BP 158/89; PULSE 94; RESP 23; TEMP 36.9; O2SAT 96
== END 2023-09-12 01:12 | disposition home or self-care (01) ==
PROVIDERS: Emergency Provider Emergency Medicine
DX: R19.7 Diarrhea, unspecified (principal); R07.9 Chest pain, unspecified; I10 Essential (primary) hypertension
CPT/HCPCS: 36415; 71045; 74177; 80053; 81003; 82550; 83690; 83735; 84484; 85025; 85610; 85730; 93005; 99284; Q9967

== ENCOUNTER 2025-06-15 10:16 | Day surgery (SDC) | payer OTHER, SELFPAY ==
[2025-06-05 12:31] VITALS: BMI 47.2
--- NOTE | 2025-06-15 | PATH_ITS ---
[facility] Accession Number: [id number] No. of containers..04 Tissue . 01 Material submitted: . PART A: stomach - ANTRAL PART B: gastrointestinal site - GASTRIC POLYP PART C: stomach - ANTRUM PART D: esophagus - ESOPHAGEAL . 01 Diagnosis: A. GASTRIC ANTRUM, BIOPSY: Gastric antral mucosa with no diagnostic abnormality. No evidence of Helicobacter organisms on H/E stain. Negative for intestinal metaplasia. Negative for dysplasia or malignancy. . B. GASTRIC POLYP: Hyperplastic polyp. Negative for Helicobacter organisms by immunohistochemistry. Negative for intestinal metaplasia. Negative for dysplasia or malignancy. . C. GASTRIC ANTRUM LESION, BIOPSY: Gastric antral mucosa with intestinal metaplasia. Negative for Helicobacter organisms by immunohistochemistry. Negative for dysplasia or malignancy. . D. ESOPHAGUS, BIOPSY: Squamous epithelium with mild reactive features of reflux esophagitis. Intraepithelial eosinophils are not increased. Negative for dysplasia and malignancy. MRV 06/21/2025 1729 Local . 01 Electronically signed: . Cesar Traore MD, PhD, Pathologist NPI- [id number] . 01 Gross description: . A. Received in formalin with two identifiers and antral BX is a single avery soft tissue fragment, 0.5 cm in greatest dimension, submitted entirely in A1. B. Received in formalin with two identifiers and gastric polyp are two avery soft tissue fragments, 0.2 cm each in greatest dimension, submitted entirely in B1. C. Received in formalin with two identifiers and antrum lesion is a single avery soft tissue fragment, 0.2 cm in greatest dimension, submitted entirely in C1. D. Received in formalin with two identifiers and esophageal biopsy are two avery soft tissue fragments, 0.3-0.4 cm in greatest dimension, submitted entirely in D1. ([id number]) /MRV 06/16/2025 [facility] . 01 Microscopic: . B. An immunohistochemical stain was performed to evaluate for Helicobacter organisms and is negative. The control stain showed appropriate reactivity. . C. An immunohistochemical stain was performed to evaluate for Helicobacter organisms and is negative. The control stain showed appropriate reactivity. . * This test was developed and the performance characteristics were validated by [employer]. It has not been cleared or approved by the U.S. Food and Drug Administration. . 01 Pathologist provided ICD-10: K21.9, K31.7, K31.A0 . 01 CPT . 632234, 122491, 316536, 364420, H97151 Specimen Comment: A courtesy copy of this report has been sent to [facility] Pathology Performed at: [address] [id number] MD Cj Avila MD Phone: [phone]
--- NOTE | 2025-06-15 06:34 | PM.HP.IH.1 ---
History of Present Illness History of Present Illness Date Patient Seen: 06/15/25 Chief complaint: EGD w/poss bx Narrative: Presents for upper endoscopy today, h/o chronic GERD, no prior EGD. [facility] Medical History (Updated 06/05/25 @ 12:57 by Esther Brooks RN) Sleep apnea Iron deficiency anemia History of blood clots Fibromyalgia Chronic low back pain Arthritis Lumbar spondylosis Osteoarthritis of right knee Lumbosacral radiculopathy Anxiety Lumbar disc disease GERD (gastroesophageal reflux disease) Family History Grandmother Cancer Social History marital status: alcohol intake: current substance use type: does not use Meds Home Medications and Allergies Home Medications ?Medication ?Instructions ?Recorded ?Confirmed ?Type baclofen 10 mg tablet 10 mg PO 3XD 04/19/25 06/01/25 History duloxetine 20 mg capsule,delayed 20 mg PO DAILY 04/19/25 06/01/25 History release ferrous sulfate 325 mg (65 mg 325 mg PO DAILY 04/19/25 06/01/25 History iron) tablet (FeroSul) gabapentin 100 mg capsule 100 mg PO 3XD 04/19/25 06/01/25 History meloxicam 15 mg tablet 15 mg PO DAILY 04/19/25 06/01/25 History metoprolol tartrate 50 mg tablet 50 mg PO BID 04/19/25 06/01/25 History omeprazole 40 mg capsule,delayed 40 mg PO BID 04/19/25 06/01/25 History release Allergies Allergy/AdvReac Type Severity Reaction Status Date / Time latex (LATEX) Allergy Mild RASH Verified 06/01/25 10:57 Penicillins (PENICILLINS) Allergy Mild Verified 06/01/25 10:57 CLASS: X20 - Allergy Mild Uncoded 06/01/25 10:57 Exam Narrative Exam Narrative: Const General: healthy appearing, comfortable and no acute distress Orientation: alert and oriented x3 HENMT Ears: hearing grossly normal bilaterally Eyes Visual Gomez: normal visual gomez by confrontation Conjunctivae: conjunctivae normal Sclera: sclerae normal EOM: EOM intact bilaterally Resp Effort & Inspection: normal respiratory effort and able to speak in complete sentences Cardio Rate: regular rate GI Palpation: soft (NT) Extrem General: no pedal edema and no calf tenderness Assessment & Plan Assessment and plan (1) GERD (gastroesophageal reflux disease): Qualifiers: Esophagitis presence: esophagitis presence not specified Qualified Code(s): K21.9 - Gastro-esophageal reflux disease without esophagitis Status: Acute Plan Plan EGD to evaluate for esophagitis, hiatal hernia, Wodo's, dysplasia, H pylori, PUD. The risks, benefits and options regarding the procedure were explained to the patient in detail. Risk discussion included but not limited to: bleeding, perforation, aspiration, sore throat. The patient was encouraged to ask questions and they were answered to their satisfaction. The patient understands and is agreeable to proceed. Time-Based Coding :: [TOTAL MINUTES] spent with patient and on the chart (including review of chart, obtaining history, exam, reviewing outside data, placing orders, documenting exam and treatment plan, and counseling patient) on [DATE]. PROFEE Outside Collector Document charge(s): Yes Charge Codes Inpatient/observation care including admit and discharge same day: [id number]
[2025-06-15 10:43] VITALS: BP 143/86; PULSE 81; RESP 17; TEMP 36.3; O2SAT 97
[2025-06-15] MEDS: LACTATED RINGERS 1,000 ML 42 ML IV (10:44)
--- NOTE | 2025-06-15 11:48 | PM.OP.EGD ---
Operative Date/Time/Diagnoses Date of procedure: 06/15/25 Time of procedure: 12:02 Pre-op diagnosis: GERD Post-op diagnosis: other (antral gastritis, gastric polyp) Procedure & Clinicians Study performed: EGD with biopsy Same procedure(s) as scheduled: Yes Indications: 60yo F, chronic GERD Surgeon: Kolby Luis Anesthesia Type: MAC +/- Procedure Notes SCOAP/Timeout: Performed Procedure in detail: EGD Informed consent was obtained. The procedure, its risks, benefits, and alternatives were discussed. Patient understood and agreed to proceed. The patient was placed in the left lateral decubitus position with head elevated. Sedation given per anesthesia. The video endoscope was inserted into the oropharynx and guided under direct vision into the esophagus, stomach, and duodenum which were carefully examined. The scope was retroflexed to examine the hiatus and gastroesophageal junction. Antral biopsies were obtained for Helicobacter pylori. The patient tolerated the procedure very well. There were no apparent complications. Significant EGD findings: Z-line noted at: 35cm No hiatal hernia No esophagitis, random biopsies taken Gastric polyp 8mm, sessile, removed with cold biopsy and sent to pathology Antrum, tiny white lesion, biopsied with cold biopsy for pathology Antral gastritis, biopsies taken Duodenum normal No ulcer in esophagus, stomach or duodenum Findings: gastritis and other findings (gastric polyp) Specimen(s): other (biopsies) Estimated Blood Loss: 5 Complications: none Impression: Gastritis Gastric polyp and small white lesion, biopsied Post-procedure Recommendations: Will call with biopsy results Plan for aftercare: PACU then home Follow up: as needed Disposition: PACU
[2025-06-15 12:05] VITALS: BP 130/80; PULSE 74; RESP 16; TEMP 36.2; O2SAT 98
[2025-06-15 12:10] VITALS: BP 116/76; PULSE 78; RESP 16; TEMP 36.2; O2SAT 98
== END 2025-06-15 12:52 | disposition home or self-care (01) ==
PROVIDERS: PCP Family Medicine; Referring Provider Surgery; Visit Provider Surgery
PROC: 0DJ08ZZ Inspection of Upper Intestinal Tract, Via Natural or Artificial Opening Endoscopic (ICD-10-PCS; CPT 43239; principal; 2025-06-15 11:15)
DX: K21.00 Gastro-esophageal reflux disease with esophagitis, without bleeding (principal); K29.70 Gastritis, unspecified, without bleeding; K31.7 Polyp of stomach and duodenum; K31.A11 Gastric intestinal metaplasia without dysplasia, involving the antrum
CPT/HCPCS: 43239; J2250; J2704; J7120